=== PATIENT | female | born 1995 | race Caucasian/White ===

== ENCOUNTER → 2020-03-31 | Outpatient (REF) | payer OTHER ==
[2020-03-31 18:06] LABS: GLUCOSE CHALLENGE TEST 1 HOUR 166 MG/DL (LESS THAN 140); HEMATOCRIT 39.8 % (36.0-47.0); HEMOGLOBIN 12.7 g/dl (12.0-15.5); MEAN CORPUSCULAR HEMOGLOBIN 27.3 pg (27.0-33.0); MEAN CORPUSCULAR HGB CONC 31.9 g/dl (32.0-36.5); MEAN CORPUSCULAR VOLUME 85.4 fl (80.0-96.0); PLATELET COUNT, AUTOMATED 240 10^3/uL (150-450); RED BLOOD COUNT 4.66 10^6/uL (4.00-5.40)
[2020-03-31 19:01] LABS: HEPATITIS C VIRUS ABY INDEX < 0.0 INDEX (<0.8)
[2020-03-31 19:02] LABS: HIV 1&2 SCREEN CENTAUR NEGATIVE (NEGATIVE)
== END ==
LOC: M PLALAB 14:01
PROVIDERS: ATTEND Advanced Practice Midwife
DX: O99.352 Diseases of the nervous system complicating pregnancy, second trimester (principal)

== ENCOUNTER → 2020-04-19 | Outpatient (REF) | payer OTHER | LOC: M PLALAB 16:28 | PROVIDERS: ATTEND Obstetrics & Gynecology | DX: Z34.92 Encounter for supervision of normal pregnancy, unspecified, second trimester (principal); Z3A.18 18 weeks gestation of pregnancy; Z53.9 Procedure and treatment not carried out, unspecified reason ==

== ENCOUNTER → 2020-04-24 | Outpatient (CLI) | payer OTHER ==
--- NOTE | 2020-04-24 17:08 | REP ---
INDICATION: ANATOMY COMPARISON: None. TECHNIQUE: Transabdominal obstetrical ultrasound with color Doppler evaluation. FINDINGS: Examination demonstrates a single live intrauterine in variable presentation. motion is identified by technologist. Placenta is noted anterior and grade 1 without evidence for placenta previa or abruption. Amniotic fluid volume is normal. Cervix measures 4.4 cm in length and appears closed.. Gestational age by LMP 19 weeks 2 days with SABINE 09/16/2020. Gestational age by current measurements 18 weeks 2 days with SABINE 09/23/2020. FHR equals 150 beats per minute. BPD: 4.1 cm 18 weeks 3 days HC: 15.1 cm 18 weeks 1 day AC: 12.7 cm 18 weeks 2 days FL: 2.7 cm 18 weeks 1 day HL: 2.7 cm 18 weeks 3 days HC/AC: 1.19 Estimated weight 230 grams (35thpercentile based on age by current measurements). Anatomical assessment demonstrates normal structures including cranium, choroid plexus, cavum, cerebellum/posterior fossa, facial features, lungs, four-chamber heart/ventricular outflow tracts, diaphragm, stomach, cord insertion/three-vessel cord, kidneys/bladder, spine, and extremities. IMPRESSION: Single live intrauterine in variable presentation. Anatomical assessment is complete and normal. No gross abnormalities are identified. <Electronically signed by Andres Bhatia > 04/24/20 [id number]
== END ==
LOC: EDUNIT# 14:00 → M WHC 14:00
PROVIDERS: ATTEND Advanced Practice Midwife
DX: O99.352 Diseases of the nervous system complicating pregnancy, second trimester (principal); Z3A.18 18 weeks gestation of pregnancy